=== PATIENT | male | born 2000 | race Caucasian/White ===

== ENCOUNTER 2020-11-27 07:55 | Emergency (ER) | payer MEDICAID ==
[~2020-11-27] VITALS: Ht 170.2 cm; Wt 104.3 kg
--- NOTE | 2020-11-27 07:58 | NUR ---
pt bibra from homeless encampment for noted seizure like activity. pt has hx of seizure, unable to recall if he took his seizure medication this am. no obvious head trauma, no oral trauma noted. stable vitals. placed on seizure precaution. awaiting md allen.
--- NOTE | 2020-11-27 08:07 | NUR ---
dr montgomery at bedside for eval.
[2020-11-27] MEDS ORDERED: LORAZEPAM 1 MG TABLET ONE (08:12)
[2020-11-27] MEDS: LORAZEPAM 1 MG TABLET PO ONE (08:17)
[2020-11-27] MEDS: LamoTRIgine 100 MG TABLET PO SCH (08:34)
--- NOTE | 2020-11-27 08:50 | NUR ---
PT IS WHEELED TO CT SCAN VIA [facility].
[2020-11-27 09:03] LABS: BASOPHILS % (AUTO) 0.6 % (0.0-2.0); EOSINOPHILS % (AUTO) 1.3 % (0.0-6.0); HEMATOCRIT 49 % (39-51); HEMOGLOBIN 16.7 g/dL (13.5-17.5); LYMPHOCYTES # (AUTO) 1.5 /CMM (0.8-4.8); LYMPHOCYTES % (AUTO) 24.4 % (20.0-44.0); MEAN CORPUSCULAR HGB CONC 34 g/dl (31.0-36.0); MEAN CORPUSCULAR VOLUME 92 fL (80-96); MONOCYTES # (AUTO) 0.3 /CMM (0.1-1.30); NEUTROPHILS # (AUTO) 4.1 /CMM (1.8-8.9); NEUTROPHILS % (AUTO) 68.7 % (43.0-81.0); PLATELET COUNT (AUTO) 179 /CMM (150-450); RED BLOOD CELL COUNT(AUTO) 5.35 MIL/uL (4.5-6.0)
[2020-11-27 09:05] LABS: CREATININE 1.1 mg/dL (0.6-1.3); POTASSIUM 4.3 mmol/L (3.5-5.1)
[2020-11-27 09:08] LABS: MAGNESIUM 2.5 mg/dL (1.8-2.4)
--- NOTE | 2020-11-27 09:43 | NUR ---
family olga left contact # [phone]
--- NOTE | 2020-11-27 10:33 | NUR ---
casimiro larsen lcsw at bedside talking to patient.
--- NOTE | 2020-11-27 10:37 | NUR ---
IV removed. Catheter intact and site benign. Pressure and 4x4 applied to site. No bleeding noted.
[2020-11-27 10:38] VITALS: BP 120/68
--- NOTE | 2020-11-27 10:38 | NUR ---
Patient given written and verbal discharge instructions. Patient verbalizes understanding of instructions. Patient is ambulatory with steady gait. Refuses offer of custodial placement. Patient given list of available shelters in surrounding area.
--- NOTE | 2020-11-27 11:04 | NUR ---
Clinical Social Work Note Met with patient who is alert and oriented x4. He was brought in for seizures by paramedics. Patient is not suicidal or homocidal and lives in a tent with his mother who is in ED lobby. Per Dr Dang his mother was trying to prevent patient from being admitted to ED. Patient's mood is euthymic. He says he gets breakthrough seizures despite being on medication. Patient cannot recall his neurologist's name. Patient signed the homeless waiver and Qing, assigned RN will do homeless checklist. Patient expressed no suicidal or homocidal ideation. He was taken out of Ed by Leroy with referrals for follow up.
--- NOTE | 2020-11-27 11:25 | NUR ---
Social Work Note Continued Patient was referred to [facility], [address], [address] for follow up as well as [facility], [address] [facility] [address] ). He also reports that he is linked to [facility] which provides him with cell phone charging kaufman, food etc.
== END 2020-11-27 10:40 | disposition home or self-care (01) ==
LOC: ER 08:03
DX: G40.909 Epilepsy, unspecified, not intractable, without status epilepticus (principal); R94.31 Abnormal electrocardiogram [ECG] [EKG]; R51.9 Headache, unspecified; R00.0 Tachycardia, unspecified; Z59.0 Homelessness
CPT/HCPCS: 36415; 70450-TC; 80048-TC; 83735-TC; 84484-TC; 85025-TC

== ENCOUNTER → 2023-02-01 | Emergency (ER) | payer MEDICAID ==
[~2023-02-01] VITALS: Ht 175.3 cm; Wt 107.5 kg
[~2023-02-01] MED LIST: IV NS 0.9% 1,000 ML BAG IV ONE; LAMO100T2 PO; LamoTRIgine 100 MG TABLET PO ONE; LamoTRIgine 25 MG TABLET PO STA
--- NOTE | 2023-02-01 09:00 | NUR ---
BIBA FOR SEIZURE. A/O X 3, ABLE TO MAKE NEEDS KNOWN, TOLERATING WELL ON ROOM AIR.
--- NOTE | 2023-02-01 10:37 | NUR ---
"SW Consult: SW consult requested for patient possible homelessness. Patient is a 22 year old male who was brought in due to seizure. Patient presents alert and oriented x3 (self,place,time). Patient's mother by pt. Patient stated that he gets seizures consistently. Patient reported that he is homeless and has been homeless with his mother since 2019. They have been residing at shelters together. Patient's mother stated that he has ADHD. Patient receives care and treatment through his doctor. Patient does not go to school. Patient has no education. SW assessed for suicidal or homicidal ideation, pt denied. SW assessed for visual/auditory hallucinations, pt denied. SW assessed for substance use and he stated that he smokes marijuana. SW offered pt resources and pt was accepting of shelters and substance abuse referrals. DC PLAN: Pt returning back to his snf with mother located at [address] [place] [address]; ([phone]). Substance Abuse resources provided included: [facility] Substance Abuse Self-Helpline ([facility]) ; CRI [facility]LP [address] [facility]. [place] [address] ; [facility] [address] [facility] [address] ; [facility] Rehabilitation Program [address] [facility] [phone] ; [facility] [address] [facility] [phone] ; [facility] 86[address] [facility] [phone] ; [facility] [address] [facility] [address] ; [facility] Substance Abuse Helpline([facility])-[facility] ; [facility] ; [facility] [place]; [facility]; [facility] [place]; [facility] [place]; [facility] [place]; [facility] [place]; [facility] [place]; [facility], [facility]. [facility]; Alcoholics Anonymous -SFV; Jm-Zipd-Muexepx ; Marijuana Anonymous -[facility]V; Narcotics Anonymous www.na.org; Shelters: [facility] [place] Provider: [facility] [place] Address: [address], [address] # of Beds: 47 Population Served: [facility] 6 | [facility] Provider: [facility] Last Address: [address] [place] [address], [address] # of Beds: 66 Population Served: [facility] Provider: First to Serve Address: [address] [facility], [address] # of Beds: 56 Population Served: [facility] [place] Provider: [facility] Address: [address] [facility], [address] # of Beds: 49 Population Served: [facility] 8 | [facility] Provider: First to Serve Address: [address] [place] [address], [address] # of Beds: 37 Population Served: [facility] Hygiene: [facility]: [address] [place] ; [facility] [address] [facility] [address] [place] ; [facility] [address] . Food Resources: [place] [facility] at [facility]- [address] [place]; Meet Each Need with Dignity ([facility]) [address] [address]; [facility] Food Pantry [address] [facility]; [facility] [address] [facility] [place]. Mental Health resources provided: [facility] [address] [place], [place] [address] ; [facility] [address] [facility] [address], [place] [address] ; [facility] [address] [place], [place] [phone] ; [facility] [address] [place], [place] [id number] Healthcare Clinics: [facility] [address] [facility], [address] [place]. [place] ; [facility] [address] [facility] [address] [place] [address]; [facility] [address] [facility] [place] [address] 154) [phone] Counseling--Outpatient [facility] [address] [facility], [place] [address] (Specializes in in-depth psychotherapy for emotional distress: anxiety, depression, interpersonal conflicts, life transitions, childhood abuse) [facility] Guidance Center [address] [place] [address] (Assist with solving problem marital difficulties, separation & divorce, aging parents, & grief, chronic & terminal illness) [facility] [address] [place] [address] (Deal with loss & grief, anxiety, marital difficulties) Homebound/Mental Health Services [address], [address] [place], [place] [id number] (Provide in-home mental services to people who are incapable of leaving their homes) [facility] Elder[facility] Senior Service/Resource Center [address] [place], [place] [phone] [facility] [address] [facility] [place] [address] PSYCHIATRIC OUTPATIENT SERVICES [facility] Partial Hospitalization and Intensive Outpatient Program (Managed Care and [place]ola Only)[address] [address]. [facility] [phone] [facility] Partial Hospitalization and Outpatient [id number] [place], [place] [phone] [facility] Mental Health [place] [id number] Hospital[facility]. [address] [place], [place] [phone] [facility] Partial Hospitalization and Outpatient [id number] [place], [phone] "
[2023-02-01 10:46] VITALS: BP 110/60
--- NOTE | 2023-02-01 10:46 | NUR ---
Patient seen by BRIAN and resources provided by same. Parent/mother here for pick and shovel worker. Patient discharged to home in stable condition. Written and verbal after care instructions given. Patient verbalizes understanding of instruction.
== END | disposition home or self-care (01) ==
LOC: ER 08:49
DX: R56.9 Unspecified convulsions (principal); R32 Unspecified urinary incontinence
CPT/HCPCS: 99283; 96360; 82962; J7030